=== PATIENT | female | born 1980 | race Caucasian/White ===

== ENCOUNTER → 2021-04-16 12:36 | Outpatient (CLI) | payer OTHER, SELFPAY ==
--- NOTE | ~2021-04-16 | XR_ITS ---
XR lumbar spine 2-3V DATE: 04/16/2021 13:07 INDICATION: Low back pain TECHNIQUE: AP, lateral, coned lateral lumbosacral views COMPARISON: None FINDINGS: Mild levoscoliosis. There is mild degenerative spurring of the lumbar spine. There is mild to moderate loss of interspace height at L4-5 but the remaining lumbar and lumbosacral interspaces are relatively preserved. The lumbar pedicles are intact. No fracture or bone destruction or spondylolisthesis. Sacroiliac join ts appear normal. IUD is noted overlying the mid pelvis. IMPRESSION: Mild degenerative change, greatest at L4-5 Reviewed, dictated and finalized at location A.
== END ==
PROVIDERS: PCP Family Medicine Adolescent Medicine; Visit Provider Physician Assistant
DX: M51.36 Other intervertebral disc degeneration, lumbar region (principal)
CPT/HCPCS: 72100